=== PATIENT | female | born 1950 | race Caucasian/White ===

== ENCOUNTER 2017-01-19 06:54 | Day surgery (SDC) | payer BC ==
--- NOTE | ~2017-01-19 | EGD ---
EGD REPORT [facility] [address] 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 Estimated blood loss: None. Procedure: Pre-Anesthesia Assessment: - ASA Grade Assessment: III - A patient with severe systemic disease. After obtaining informed consent, the endoscope was passed under direct vision. Throughout the procedure, the patient's blood pressure, pulse, and oxygen saturations were monitored continuously. The GIF [id number] was introduced through the mouth, and advanced to the second part of duodenum. The upper GI endoscopy was accomplished without difficulty. The patient tolerated the procedure well. Findings: LA Grade C (one or more mucosal breaks continuous between tops of 2 or more mucosal folds, less than 75% circumference) esophagitis with no bleeding was found in the lower third of the esophagus. The esophagus and gastroesophageal junction were examined with white light. Camacho's esophagus was present, extending from the upper extent of the gastric folds which were at 33 cm from the incisors. Scattered islands of salmon-colored mucosa (few islands present 95 percent of Camacho's is gone) were present from 27 to 33 cm. The maximum longitudinal extent of these esophageal mucosal changes was 7 cm in length. Mucosa was biopsied with a cold forceps for histology in 4 quadrants at intervals of 1 cm at 27 cm from the incisors, at 28 cm from the incisors, at 29 cm from the incisors, at 30 cm from the incisors, at 31 cm from the incisors, at 32 cm from the incisors and at 33 cm from the incisors. A total of 7 specimen bottles were sent to pathology. A 4 cm hiatus hernia was present. The cardia and gastric fundus were normal on retroflexion. The exam of the stomach was otherwise normal. The examined duodenum was normal. Impression: - LA Grade C esophagitis. EGD REPORT [address] [place]. [address] NAME: ERICKA PAUL : [birth year] STATUS : REG [facility] [place] PAT#: [id number] AGE: 66 ADM/REG DATE : 01/19/17 MR#: [id number] REPORT SERV DATE: 01/19/17 DICTATED BY: PRICE ZABALA DATE: 01/19/17 REPORT STATUS : Draft TRANSCRIBED BY: [employer] DATE: 01/19/17 - Camacho's esophagus. - Hiatus hernia. - Normal examined duodenum. Recommendation: - Return to previous diet. - Continue present medications. - Await pathology results. - Will need to clarify if she is compliant with BID PPI. If so will likely need reflux surgery as further RFA likely will be ineffective and there is still significant erosive esophagitis in the lower 2 cm of the esophagus. Procedure Code(s): --- Professional --- 85238, Esophagogastroduodenoscopy, flexible, transoral; with biopsy, single or multiple Diagnosis Code(s): --- Professional --- K20.9, Esophagitis, unspecified K22.70, Camacho's esophagus without dysplasia K44.9, Diaphragmatic hernia without obstruction or gangrene Z09, Encounter for follow-up examination after completed treatment for conditions other than malignant neoplasm CPT copyright 2013 [employer]. All rights reserved. The codes documented in this report are preliminary and upon customer experience analyst review may be revised to meet current compliance requirements. PRICE ZABALA, 01/19/2017 8:15 AM Number of Addenda: 0 Note Initiated On: 01/19/2017 7:50 AM Scope Withdrawal Time 0 hours 0 minutes 0 seconds [address] [address]
[~2017-01-19 06:54] MED LIST: ENTOCORT3 PO; LIPITOR10 PO; MULTIPLE VIT PO; PRILOSEC OTC20 MG PO; PROBIOTIC; PROTONIX PO; Protonix PO
== END 2017-01-19 23:59 | disposition home or self-care (01) ==
LOC: DMU 06:54
PROVIDERS: Internal Medicine Gastroenterology
PROC: 0DB58ZX Excision of Esophagus, Via Natural or Artificial Opening Endoscopic, Diagnostic (ICD-10-PCS; principal; 2017-01-19 08:00)
DX: K21.0 Gastro-esophageal reflux disease with esophagitis (principal); K22.70 Barrett's esophagus without dysplasia; H91.90 Unspecified hearing loss, unspecified ear; I49.9 Cardiac arrhythmia, unspecified; K44.9 Diaphragmatic hernia without obstruction or gangrene; E78.00 Pure hypercholesterolemia, unspecified; K52.9 Noninfective gastroenteritis and colitis, unspecified; Z97.4 Presence of external hearing-aid; Z09 Encounter for follow-up examination after completed treatment for conditions other than malignant neoplasm; Z98.51 Tubal ligation status; Z98.890 Other specified postprocedural states; Z79.899 Other long term (current) drug therapy
CPT/HCPCS: 88305